=== PATIENT | male | born 1985 | race Caucasian/White ===

== ENCOUNTER 2019-04-14 00:10 | Emergency (ER) | payer OTHER ==
[2019-04-14 00:36] VITALS: TEMP 97.9; BMI 28.8
[2019-04-14] MEDS ORDERED: SODIUM CHLORIDE 500 ML IV STA (00:55)
[2019-04-14] MEDS ORDERED: morphine CARPU-JECT 4 MG/1 ML DISP.SYRIN IVPUSH ONE (00:56)
--- NOTE | 2019-04-14 01:08 | PDOC ---
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 Pain is waxing waning, sharp, nonradiating, without alleviating or exacerbating factors, associated with anorexia and decreased p.o. intake of solids and liquids. Patient seen in urgent care diagnosed with cholelithiasis. Patient given Toradol with temporary relief. Patient presents to the ER requesting that his gallbladder be removed. Past History - Past Medical History Allergies/Adverse Reactions: Allergies Allergy/AdvReac Type Severity Reaction Status Date / Time No Known Allergies Allergy Verified 04/14/19 00:26 Home Medications: Ambulatory Orders Ondansetron [Zofran *Odt*] 8 mg SL TID #20 od.tablet 04/14/19 Oxycodone HCl/Acetaminophen [Percocet 5-325 mg Tablet] 1 tab PO Q6H #20 tablet MDD 4 04/14/19 COPD: No - Psycho Social/Smoking Cessation Hx Smoking History: Never smoked *Physical Exam - Vital Signs Last Vital Signs Temp Pulse Resp BP Pulse Ox 97.9 F 73 16 124/74 100 04/14/19 00:27 04/14/19 00:27 04/14/19 00:27 04/14/19 00:27 04/14/19 00:27 - Physical Exam Comments: 04/14/19 01:07 REVIEW OF SYSTEMS CONSTITUTIONAL: No fever, no chills, no fatigue EYES: No visual changes ENT: No ear pain, no sore throat CARDIOVASCULAR: No chest pain, no palpitations RESPIRATORY: No cough, no SOB GI: + abdominal pain, + nausea, + vomiting, no constipation, no diarrhea GENITOURINARY: No dysuria, no frequency, no hematuria MUSKULOSKELETAL: No backpain, no joint pain, no myalgias SKIN: No rash NEURO: No headache EXAMINATION CONSTITUTIONAL: Well-appearing; well-nourished; in no apparent distress HEAD: Normocephalic; atraumatic EYES: PERRL; EOM intact ENMT: External appears normal; normal oropharynx NECK: Supple; non-tender; no cervical lymphadenopathy CARD: Normal S1, S2; no murmurs, rubs, or gallops RESP: Normal chest excursion with respiration; breath sounds clear and equal bilaterally; no wheezes, rhonchi, or rales ABD: Soft, non-distended; + ruq tender; murphys negative; no palpable organomegaly, no palpable hernias EXT: Normal ROM in all four extremities; non-tender to palpation; distal pulses intact SKIN: Warm, dry, no rash NEURO: No focal neurological deficiencies. ED Treatment Course - LABORATORY CBC & Chemistry Diagram: 04/14/19 01:28 04/14/19 01:28 - RADIOLOGY Radiology Studies Ordered: Category Date Time Status ABDOMEN US -LIMITED [US] Stat Ultrasound 04/14/19 00:55 Ordered Medical Decision Making - Medical Decision Making 04/14/19 01:08 33-year-old male presents with signs symptoms of gallbladder disease. Will obtain CBC/CMP/lipase/abdominal ultrasound to evaluate for cholecystitis. Will administer pain meds. Will reassess. 04/14/19 02:14 Patient with no evidence of acute cholecystitis. CBC reveals WBCs of 11 which is decreased from 11. 8 noted previously. LFTs and lipase within normal limit. Right upper quadrant ultrasound reveals no evidence of thickened gallbladder wall, a gallstone with biliary sludge are noted. Patient tolerates p.o. Will discharge with pain medication with outpatient surgical follow-up. Discharge - Discharge Information Problems reviewed: Yes Clinical Impression/Diagnosis: Gall stones Condition: Stable Disposition: HOME - Admission No - Follow up/Referral Referrals: Sissy Su MD [Primary Care Provider] - Vahid Rojas MD [Staff Physician] - - Patient Discharge Instructions Patient Printed Discharge Instructions: DI for Gallstones - Post Discharge Activity
[2019-04-14] MEDS ORDERED: morphine SULFATE 4 MG/ML VIAL ONE (01:31)
[2019-04-14 01:35] LABS: EOS % 0.8 % (0-4.5); HEMATOCRIT 41.1 % (35.4-49); HEMOGLOBIN 13.9 GM/dL (11.7-16.9); LYMPH % 17.1 % (8-40); MCH 28.7 pg (25.7-33.7); MCHC 33.9 g/dl (32.0-35.9); MEAN CELL VOLUME 84.7 fl (80-96); MEAN PLT VOLUME 7.5 fl (7.5-11.1); MONO % 9.1 % (3.8-10.2); PLATELET COUNT 278 K/MM3 (134-434); RBC 4.85 M/mm3 (4.00-5.60); RDW 12.9 % (11.9-15.9)
[2019-04-14 01:59] LABS: ALBUMIN 3.8 g/dl (3.4-5.0); BILIRUBIN,TOTAL 0.4 mg/dL (0.2-1); BLOOD UREA NITROGEN 14.9 mg/dL (7-18); CALCIUM 9.2 mg/dL (8.5-10.1); CREATININE 0.8 mg/dL (0.55-1.3); POTASSIUM 4.1 mmol/L (3.5-5.1); TOT PROT 7.5 g/dl (6.4-8.2)
[2019-04-14 02:08] LABS: PH,URINE 7.5 (5.0-8.0); URINE APPEARANCE CLEAR; URINE BILIRUBIN NEGATIVE (NEGATIVE); URINE COLOR YELLOW; URINE GLUCOSE (UA) NEGATIVE (NEGATIVE); URINE KETONE NEGATIVE (NEGATIVE); URINE LEUK ESTERASE NEGATIVE (NEGATIVE); URINE NITRITE NEGATIVE (NEGATIVE); URINE PROTEIN NEGATIVE (NEGATIVE); URINE UROBILINOGEN 0.2 mg/dL (0.2-1.0)
[2019-04-14 02:29] VITALS: BP 118/74; PULSE 78
== END 2019-04-14 02:29 | disposition home or self-care (01) ==
LOC: JER 00:10
PROC: 3E033NZ Introduction of Analgesics, Hypnotics, Sedatives into Peripheral Vein, Percutaneous Approach (ICD-10-PCS; principal; 2019-04-14)
DX: K80.20 Calculus of gallbladder without cholecystitis without obstruction (principal)
CPT/HCPCS: 36415; 76705-TC; 80053; 81003; 83690; 85025; 99282-25

== ENCOUNTER 2021-12-07 06:52 | Emergency (ER) | payer BC, OTHER ==
[2021-12-07 07:30] VITALS: BP 113/72; PULSE 74; TEMP 97.9; BMI 28.0
[2021-12-07] MEDS ORDERED: KETOROLAC TROMETHAMINE 30 MG/1 ML VIAL IM ONE (07:44)
[2021-12-07] MEDS ORDERED: KETOROLAC TROMETHAMINE 30 MG/1 ML VIAL ONE (07:48)
== END 2021-12-07 08:07 | disposition home or self-care (01) ==
LOC: JER 06:52
PROC: 3E0233Z Introduction of Anti-inflammatory into Muscle, Percutaneous Approach (ICD-10-PCS; principal; 2021-12-07)
DX: M79.652 Pain in left thigh (principal)
CPT/HCPCS: 99283-25